=== PATIENT | male | born 1950 | race Caucasian/White ===

== ENCOUNTER 2017-04-19 12:10 | Day surgery (SDC) | payer MEDICARE, BC ==
--- NOTE | 2017-04-17 16:47 | HP ---
PREOPERATIVE HISTORY AND PHYSICAL: DATE OF ADMISSION/SURGERY: 04/19/17 [facility] DATE OF OFFICE VISIT/ENCOUNTER: 04/17/17 ATTENDING PHYSICIAN: Meagan Espitia MD PROCEDURE: Right carpal tunnel release. CHIEF COMPLAINT: Right hand numbness and tingling. 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 He does not have any pain. He has difficulty doing fine tasks such as buttoning buttons. He denies any injury, but does a lot of typing at his job. The patient is interested in proceeding with surgical intervention at this time in the form of a right carpal tunnel release. PAST MEDICAL HISTORY: 1. Hyperlipidemia. 2. Seasonal allergies. 3. Anxiety/depression. PAST SURGICAL HISTORY: None. CURRENT MEDICATIONS: 1. Lamar Allergy 180 mg p.r.n. 2. Aspirin 81 mg daily. 3. Avodart 0.5 mg daily. 4. Centrum Silver 1 tab daily. 5. Citalopram hydrobromide 20 mg daily. 6. Citrucel 500 mg daily. 7. Lipitor 80 mg daily. 8. Nexium 40 mg daily. 9. [place]kiln-3 1200 mg daily. 10. Uroxatral 10 mg daily. 11. Zetia 10 mg daily. ALLERGIES: No known drug allergies. FAMILY MEDICAL HISTORY: Significant for cardiac disease. SOCIAL HISTORY: The patient is employed as an corporate attorney. He denies tobacco use and illicit drug use. He does admit to alcohol use on occasions. REVIEW OF SYSTEMS: General: Negative for fevers, chills, or night sweats. No known anesthesia problems. HEENT: Negative for headache, lightheadedness, or syncopal episodes. Integumentary: Negative for abrasions, lesions, or open wounds. Cardiothoracic: Negative for hypertension, chest pain, palpitations, or edema. Pulmonary: Negative for shortness of breath with exertion, chronic cough, or COPD. GI: Negative for nausea, vomiting, diarrhea, constipation, or GERD. : Negative for nocturia, urinary frequency, urgency, history of UTIs, or kidney problems. Musculoskeletal: Positive for current complaint. Negative for chronic or intermittent back pain or history of fractures. Neurological: Positive for anxiety/depression. Negative for history of seizure , stroke, or epilepsy. Endocrine: Negative for diabetes or thyroid issues. Hematologic: Negative for easy bruising, anemia, excessive bleeding, or history of DVT. Infectious Disease: Negative for history of MRSA, hepatitis C, or HIV. PHYSICAL EXAMINATION GENERAL: Well-developed, well-nourished, 66-year-old male, in no acute distress. VITAL SIGNS: Height 5 feet 8-1/4 inches, weight 164 pounds, pulse rate 77, blood pressure 115/75. HEENT: Normocephalic, atraumatic. Pupils are equal, round, and reactive to light and accommodation. Extraocular movements are intact. NECK: Supple. No palpable lymph nodes. Throat is clear. PULMONARY: Lungs are clear to auscultation bilaterally. No wheezes, rales, or rhonchi. CARDIOVASCULAR: Regular rate and rhythm. S1, S2. No murmurs, rubs or gallops. No edema. ABDOMEN: Positive bowel sounds, soft, nontender. MUSCULOSKELETAL: On exam of the right upper extremity and his right hand, the skin is intact. He has decreased sensation in the median nerve distribution. Intact sensation in the ulnar nerve distribution. He can make a full fist and can fully extend his fingers. He has a positive median nerve compression test. No thenar wasting. Minimal weakness with thumb abduction. NEUROLOGICAL: Alert and oriented x3. Cranial nerves II through XII are intact. Sensation is intact to light touch. ASSESSMENT: Right carpal tunnel syndrome. PLAN: The patient is scheduled to undergo a right carpal tunnel release with Dr. Espitia on 04/19/17. He will return to the office in 10 to 14 days postop for followup and suture removal. A prescription for Ultracet was e-scribed to the patient's pharmacy for postoperative pain management. ERIN WEIR [id number]/[facility] #: [id number] JESS
[2017-04-19] MEDS ORDERED: Lidocaine 1% INJ* 10 MG/ML 30 ML SDV ONE (12:51)
[2017-04-19] MEDS ORDERED: fentaNYL* 50 MCG/ML 2 ML VIAL (100 MCG VIAL) ONE (13:07)
[2017-04-19] MEDS ORDERED: Midazolam* 1 MG/ML 5 ML VIAL (5 MG) ONE (13:07)
[2017-04-19 13:49] VITALS: BP 114/73
--- NOTE | 2017-04-20 02:56 | OP ---
DATE OF OPERATION: 04/19/17 [facility] DATE OF : 52 SURGEON: Dr. Espitia CRM MARKETING EXECUTIVE: ERIN Jeronimo ANESTHESIOLOGIST: Chuyita Artis MD ANESTHESIA: Local MAC. PRE-OP DIAGNOSIS: Right carpal tunnel syndrome. POST-OP DIAGNOSIS: Right carpal tunnel syndrome. OPERATIVE PROCEDURE: Right carpal tunnel release. ESTIMATED BLOOD LOSS: Zero. TOURNIQUET TIME: 5 minutes. INDICATION FOR PROCEDURE: Jose Alejandro is a 66-year-old man with numbness and tingling in the median nerve distribution of his right hand. He presents for carpal tunnel release. DESCRIPTION OF PROCEDURE: The patient was brought to the operating room, was given a sedation anesthetic, and a local infiltration of 10 cc of 1% plain lidocaine in the palm of his right hand. The skin of his right hand and forearm was prepped and draped in the usual sterile fashion. The hand and forearm were exsanguinated and the tourniquet elevated to 250 mmHg. A longitudinal incision was made in the palm in line with the ring finger. We dissected through the subcutaneous tissue down to the transverse carpal ligament. The ligament was divided sharply with the knife and then more proximally with the scissors. The nerve was dissected free from the surrounding tissue and there was an area of moderate compression in the mid portion of the ligament. The wound was irrigated and the skin edges were reapproximated with 4-0 nylon suture. The wound was dressed with Xeroform, 4x4 , Webril, and an Raymundo wrap. The patient tolerated the procedure well and was brought to the recovery room in good condition. [id number]/[facility] #: [id number] [facility] SYSTEMElizabeth
== END 2017-04-19 14:17 | disposition home or self-care (01) ==
LOC: OREAST 12:10
PROVIDERS: ATTEND Orthopaedic Surgery
DX: G56.01 Carpal tunnel syndrome, right upper limb (principal); K21.9 Gastro-esophageal reflux disease without esophagitis
CPT/HCPCS: J2001; J2250; J3010